=== PATIENT | male | born 1965 | race Caucasian/White ===

== ENCOUNTER → 2016-06-25 | Outpatient (CLI) | payer OTHER ==
[2016-06-25 08:48] LABS: ALBUMIN 4.1 GM/DL (3.2-5.2); ALBUMIN/GLOBULIN RATIO 1.21 (1.00-1.93); ALKALINE PHOSPHATASE 81 U/L (45-117); ALT/SGPT 22 U/L (12-78); ANION GAP 6 MEQ/L (8-16); AST/SGOT 11 U/L (15-37); BILIRUBIN,TOTAL 0.4 MG/DL (0.2-1.0); BLOOD UREA NITROGEN 16 MG/DL (7-18); CALCIUM LEVEL 8.4 MG/DL (8.5-10.1); CARBON DIOXIDE LEVEL 27 MEQ/L (21-32); CHLORIDE LEVEL 107 MEQ/L (98-107); CHOLESTEROL LEVEL 196 MG/DL (<200); CREATININE FOR GFR 0.82 MG/DL (0.70-1.30); GLOMERULAR FILTRATION RATE > 60.0 (>56); GLUCOSE, FASTING 95 MG/DL (70-105); SODIUM LEVEL 140 MEQ/L (136-145); TOTAL PROTEIN 7.5 GM/DL (6.4-8.2); TRIGLYCERIDES LEVEL 104 MG/DL (<150)
== END ==
LOC: M LAB 07:33
PROVIDERS: ATTEND Emergency Medicine
DX: I10 Essential (primary) hypertension (principal)

== ENCOUNTER 2016-07-22 15:14 | Emergency (ER) | payer OTHER ==
[~2016-07-22] VITALS: Ht 172.7 cm; Wt 83.9 kg
[2016-07-22] MEDS ORDERED: SERT50TA PO (15:27)
[2016-07-22] MEDS ORDERED: b/p med PO (15:27)
[2016-07-22] MEDS ORDERED: LISI10TA4 PO (15:27)
[2016-07-22] MEDS ORDERED: NORCO, ANEXSIA 5/325MG TABLET (HYDROcodone/ACETAMINOPHEN) PO ONE (16:45)
[2016-07-22] MEDS ORDERED: NAPR500T PO (18:05)
--- NOTE | 2016-07-22 18:07 | REP ---
RIGHT LOWER EXTREMITY DUPLEX VEINS: HISTORY: Swelling. There are no filing defects in the deep venous system. The deep venous system is patent. A Smith's cyst is present. The cyst measures 5.2 x 1.7 x 2.5 cm. IMPRESSION: 1. There is no deep venous thrombosis. 2. Smith's cyst. Signed by Karlo Kelsey MD 07/22/2016 06:14 P
[2016-07-22 18:37] VITALS: BP 127/74
== END 2016-07-22 18:38 | disposition home or self-care (01) ==
LOC: M ED 17:09
DX: M71.21 Synovial cyst of popliteal space [Baker], right knee (principal); M25.461 Effusion, right knee; I10 Essential (primary) hypertension; F17.200 Nicotine dependence, unspecified, uncomplicated

== ENCOUNTER → 2018-01-20 | Outpatient (REF) | LOC: M LAB 13:35 | DX: Z02.89 Encounter for other administrative examinations (principal) ==

== ENCOUNTER → 2018-01-28 | Outpatient (REF) | payer OTHER | LOC: M SFHCPLAZ 15:35 | DX: L02.413 Cutaneous abscess of right upper limb (principal) ==

== ENCOUNTER → 2019-01-24 | Outpatient (CLI) | payer OTHER ==
[~2019-01-24] MED LIST: LISI10TA4 PO; NAPR-837 PO; SERT-141 PO; b/p med PO
[2019-01-24 07:43] LABS: ALBUMIN 3.9 GM/DL (3.2-5.2); ALT/SGPT 19 U/L (12-78); BILIRUBIN,TOTAL 0.8 MG/DL (0.2-1.0); BLOOD UREA NITROGEN 17 MG/DL (7-18); CALCIUM LEVEL 8.9 MG/DL (8.5-10.1); CARBON DIOXIDE LEVEL 25 MEQ/L (21-32); CHLORIDE LEVEL 111 MEQ/L (98-107); CREATININE FOR GFR 0.77 MG/DL (0.70-1.30); GLOMERULAR FILTRATION RATE > 60.0 (>56); GLUCOSE, FASTING 98 MG/DL (70-100); POTASSIUM SERUM 3.8 MEQ/L (3.5-5.1); SODIUM LEVEL 142 MEQ/L (136-145); TOTAL PROTEIN 7.3 GM/DL (6.4-8.2)
== END ==
LOC: M LAB 06:42
PROVIDERS: ATTEND Physician Assistant Medical
DX: I10 Essential (primary) hypertension (principal)

== ENCOUNTER → 2020-07-18 | Outpatient (REF) | payer OTHER ==
[~2020-07-18] MED LIST changes: +LISI10TA22 PO; -LISI10TA4 PO
[2020-07-18 18:19] LABS: BASO % 0.5 % (0.0-1.0); EOS # 0.1 10^3/uL (0.0-0.5); EOS % 1.1 % (0.0-3.0); HEMATOCRIT 39.7 % (42.0-52.0); HEMOGLOBIN 13.3 g/dl (13.5-17.5); LYMPH % 26.9 % (24.0-44.0); MEAN CORPUSCULAR HEMOGLOBIN 31.6 pg (27.0-33.0); MEAN CORPUSCULAR HGB CONC 33.5 g/dl (32.0-36.5); MEAN CORPUSCULAR VOLUME 94.3 fl (80.0-96.0); MONO # 0.5 10^3/uL (0.0-0.8); MONO % 6.8 % (2.0-8.0); NEUTROPHILS # 4.8 10^3/uL (1.5-8.5); NEUTROPHILS % 64.3 % (36.0-66.0); PLATELET COUNT, AUTOMATED 237 10^3/uL (150-450); RED BLOOD COUNT 4.21 10^6/uL (4.30-6.10); WHITE BLOOD COUNT 7.4 10^3/uL (4.0-10.0)
[2020-07-19 07:49] LABS: FREE T4 0.98 NG/DL (0.76-1.46); THYROID STIMULATING HORMONE 0.996 uIU/ML (0.358-3.740)
[2020-07-19 14:46] LABS: HEMOGLOBIN A1c 5.6 %
== END ==
LOC: M SFHCPLAZ 15:29
PROVIDERS: ATTEND Physician Assistant Medical
DX: I11.9 Hypertensive heart disease without heart failure (principal); F32.9 Major depressive disorder, single episode, unspecified; E66.3 Overweight; Z12.5 Encounter for screening for malignant neoplasm of prostate

== ENCOUNTER 2021-09-09 11:12 | Emergency (ER) | payer OTHER ==
[~2021-09-09] VITALS: Ht 172.7 cm; Wt 79.5 kg
[2021-09-09] MEDS ORDERED: SERT25TA21 (11:33)
[2021-09-09] MEDS ORDERED: AMLO1TAB24 (11:33)
[2021-09-09] MEDS ORDERED: IBUP200T46 PO (11:33)
[2021-09-09] MEDS ORDERED: ZOLO100T (11:33)
[2021-09-09] MEDS ORDERED: ACETAMINOPHEN TAB 650MG DOSE (2X325MG) PO ONE (12:35)
[2021-09-09] MEDS ORDERED: KETOROLAC 60MG 2ML VIAL IM ONE (14:35)
[2021-09-09] MEDS ORDERED: NORCO, ANEXSIA 5/325MG TABLET (HYDROcodone/ACETAMINOPHEN) PO ONE (14:35)
[2021-09-09] MEDS ORDERED: ULTR50TA8 PO (17:25)
[2021-09-09] MEDS ORDERED: PRED20TA PO (17:25)
[2021-09-09 17:32] LABS: BLOOD UREA NITROGEN 9 MG/DL (7-18); C REACTIVE PROTEIN QUANTITATIV 1.18 MG/DL (0.00-0.30); CALCIUM LEVEL 8.9 MG/DL (8.5-10.1); CARBON DIOXIDE LEVEL 27 MEQ/L (21-32); CHLORIDE LEVEL 108 MEQ/L (98-107); CREATININE FOR GFR 0.87 MG/DL (0.70-1.30); GLOMERULAR FILTRATION RATE > 60.0 (>56); GLUCOSE, FASTING 98 MG/DL (70-100); POTASSIUM SERUM 4.2 MEQ/L (3.5-5.1); RHEUMATOID FACTOR QUANT < 10.0 IU/ML (<15.0); SODIUM LEVEL 139 MEQ/L (136-145); URIC ACID 3.1 MG/DL (3.5-7.2)
[2021-09-09 17:43] VITALS: BP 156/81
[2021-09-09 20:05] LABS: BASO # 0.1 10^3/uL (0.0-0.2); BASO % 0.7 % (0.0-1.0); EOS # 0.1 10^3/uL (0.0-0.5); EOS % 0.8 % (0.0-3.0); HEMATOCRIT 40.6 % (42.0-52.0); HEMOGLOBIN 13.6 g/dl (13.5-17.5); LYMPH # 2.7 10^3/uL (1.5-5.0); LYMPH % 33.1 % (24.0-44.0); MEAN CORPUSCULAR HEMOGLOBIN 31.4 pg (27.0-33.0); MEAN CORPUSCULAR HGB CONC 33.5 g/dl (32.0-36.5); MEAN CORPUSCULAR VOLUME 93.8 fl (80.0-96.0); MONO # 0.5 10^3/uL (0.0-0.8); MONO % 5.9 % (2.0-8.0); NEUTROPHILS # 4.9 10^3/uL (1.5-8.5); NEUTROPHILS % 59.3 % (36.0-66.0); PLATELET COUNT, AUTOMATED 282 10^3/uL (150-450); RED BLOOD COUNT 4.33 10^6/uL (4.30-6.10); WHITE BLOOD COUNT 8.2 10^3/uL (4.0-10.0)
[2021-09-09 20:29] LABS: ERYTHROCYTE SEDIMENTATION RATE 15 mm/hr (0-20)
[2021-09-11 15:08] LABS: ANTINUCLEAR ANTIBODIES DIRECT Negative (Negative)
== END 2021-09-09 17:48 | disposition home or self-care (01) ==
LOC: M ED 11:12
DX: M25.461 Effusion, right knee (principal); M71.21 Synovial cyst of popliteal space [Baker], right knee; I10 Essential (primary) hypertension; F17.200 Nicotine dependence, unspecified, uncomplicated; Z79.899 Other long term (current) drug therapy
CPT/HCPCS: 36415; 73564; 76882; 80048; 84550; 85025; 85652; 86038; 86140; 86431; 86618; 93971; 96372; 99283; J1885

== ENCOUNTER 2022-09-27 07:19 | Emergency (ER) | payer OTHER ==
[~2022-09-27] VITALS: Ht 172.7 cm; Wt 71.9 kg
[~2022-09-27 07:19] MED LIST changes: +AMLO1TAB24; +IBUP200T46 PO; +PRED20TA PO; +SERT25TA21; +ULTR50TA8 PO; +ZOLO100T
[2022-09-27] MEDS ORDERED: LORazepam 1 MG TAB PO ONE (07:55)
[2022-09-27] MEDS ORDERED: HYDR50TA70 PO (08:22)
[2022-09-27 08:44] VITALS: BP 166/78; TEMP 98; O2SAT 99
== END 2022-09-27 08:46 | disposition home or self-care (01) ==
LOC: M ED 07:19
DX: G47.00 Insomnia, unspecified (principal); F41.9 Anxiety disorder, unspecified; Z79.899 Other long term (current) drug therapy

== ENCOUNTER → 2022-11-17 | Outpatient (CLI) | payer OTHER ==
[~2022-11-17] MED LIST changes: +HYDR50TA70 PO
== END ==
LOC: M EKG 09:02
PROVIDERS: ATTEND Physician Assistant
DX: F41.1 Generalized anxiety disorder (principal)

== ENCOUNTER 2022-11-28 10:49 | Emergency (ER) | payer OTHER ==
[~2022-11-28] VITALS: Ht 172.7 cm; Wt 82.7 kg
[2022-11-28 10:50] VITALS: TEMP 98.5
[2022-11-28 11:50] LABS: BASO % 0.6 % (0.0-1.0); EOS # 0.1 10^3/uL (0.0-0.5); EOS % 1.1 % (0.0-3.0); HEMATOCRIT 40.6 % (42.0-52.0); HEMOGLOBIN 13.5 g/dl (13.5-17.5); LYMPH # 1.9 10^3/uL (1.5-5.0); LYMPH % 36.1 % (24.0-44.0); MEAN CORPUSCULAR HEMOGLOBIN 30.9 pg (27.0-33.0); MEAN CORPUSCULAR HGB CONC 33.3 g/dl (32.0-36.5); MEAN CORPUSCULAR VOLUME 92.9 fl (80.0-96.0); MONO # 0.3 10^3/uL (0.0-0.8); MONO % 6.2 % (2.0-8.0); NEUTROPHILS % 55.6 % (36.0-66.0); PLATELET COUNT, AUTOMATED 230 10^3/uL (150-450); RED BLOOD COUNT 4.37 10^6/uL (4.30-6.10); WHITE BLOOD COUNT 5.3 10^3/uL (4.0-10.0)
[2022-11-28 12:19] LABS: CPK CREATINE PHOSPHOKINASE 62 U/L (46-171)
[2022-11-28 12:20] LABS: BLOOD UREA NITROGEN 21 MG/DL (9-23); CARBON DIOXIDE LEVEL 27 MMOL/L (20-31); CHLORIDE LEVEL 102 MMOL/L (98-107); CK-MB VALUE MASS < 1.0 NG/ML (<3.6); GLOMERULAR FILTRATION RATE > 60.0 (>56); GLUCOSE, FASTING 107 MG/DL (60-100); MB/CK RELATIVE INDEX 1.61 (< OR =4); POTASSIUM SERUM 4.1 MMOL/L (3.5-5.1); SODIUM LEVEL 137 MMOL/L (136-145)
[2022-11-28] MEDS ORDERED: amLODIPine 5 MG TAB PO ONE (12:25)
[2022-11-28] MEDS ORDERED: ASPIRIN 81MG CHEW TABLET PO ONE (12:30)
[2022-11-28 12:37] LABS: ALBUMIN 4.3 G/DL (3.2-5.2); ALKALINE PHOSPHATASE 69 U/L (46-116); ALT/SGPT 18 U/L (7.0-40); AST/SGOT 9 U/L (<34); BILIRUBIN,DIRECT 0.2 MG/DL (<0.4); BILIRUBIN,TOTAL 0.5 MG/DL (0.3-1.2); TOTAL PROTEIN 7.7 G/DL (5.7-8.2)
[2022-11-28] MEDS ORDERED: ISOVUE-370 76% 100ML VIAL As Ordered ONE (13:09)
[2022-11-28 13:27] LABS: CK-MB VALUE MASS < 1.0 NG/ML (<3.6)
[2022-11-28 13:31] LABS: CPK CREATINE PHOSPHOKINASE 56 U/L (46-171); MB/CK RELATIVE INDEX 1.78 (< OR =4)
[2022-11-28 13:45] VITALS: BP 152/82; O2SAT 99
== END 2022-11-28 14:11 | disposition home or self-care (01) ==
LOC: M ED 10:49
DX: R07.9 Chest pain, unspecified (principal); R93.89 Abnormal findings on diagnostic imaging of other specified body structures; I10 Essential (primary) hypertension; G47.00 Insomnia, unspecified; F41.9 Anxiety disorder, unspecified; F32.A Depression, unspecified; Z79.899 Other long term (current) drug therapy
CPT/HCPCS: 70450; 70496; 70498; 71045; 80048; 80076; 82550; 82553; 84484; 85025; 85379; 93005; 93041; 94760; 99285; Q9967

== ENCOUNTER → 2023-01-08 | Outpatient (CLI) | payer OTHER ==
[2023-01-08 11:59] LABS: FREE T4 1.27 NG/DL (0.89-1.76); THYROID STIMULATING HORMONE 0.787 uIU/ML (0.55-4.78)
== END ==
LOC: M LAB 10:44
PROVIDERS: ATTEND Nurse Practitioner Family
DX: E04.2 Nontoxic multinodular goiter (principal)

== ENCOUNTER → 2024-12-02 | Outpatient (CLI) | payer OTHER ==
[2024-12-02 08:50] LABS: BASO # 0.0 10^3/uL (0.0-0.2); BASO % 0.7 % (0.0-1.0); EOS # 0.1 10^3/uL (0.0-0.5); EOS % 2.4 % (0.0-3.0); LYMPH # 1.9 10^3/uL (1.5-5.0); LYMPH % 35.3 % (24.0-44.0); MONO # 0.3 10^3/uL (0.0-0.8); MONO % 5.9 % (2.0-8.0); NEUTROPHILS # 3.0 10^3/uL (1.5-8.5); NEUTROPHILS % 55.5 % (36.0-66.0); PLATELET COUNT, AUTOMATED 183 10^3/uL (150-450)
[2024-12-02 09:19] LABS: IRON (FE) 79.0 UG/DL (65-175); PERCENT SATURATION 29.8 % (19.7-50.0)
[2024-12-02 09:22] LABS: VITAMIN B12 LEVEL 336.0 PG/ML (211-911)
== END ==
LOC: M LAB 08:22
PROVIDERS: ATTEND Physician Assistant
DX: D64.9 Anemia, unspecified (principal)